=== PATIENT | female | born 1980 | race Caucasian/White ===

== ENCOUNTER 2019-05-17 01:16 | Emergency (ER) | payer OTHER ==
[2019-05-17 01:47] LABS: Urine Bacteria >50 /HPF (<20); Urine Culture Reflex Order REFLEXED; Urine RBC TNTC /HPF (NONE SEEN)
[2019-05-17 01:50] LABS: Urine Blood 3+ (NEG); Urine Glucose NEGATIVE (NEG); Urine Protein 3+ (NEG)
[2019-05-17] MEDS ORDERED: KETOROLAC 30 MG/ML INJ ONE (02:32)
[2019-05-17] MEDS ORDERED: CEFTRIAXONE 1000 MG/VIAL ONE (02:32)
--- NOTE | 2019-05-17 02:45 | ER ---
Nurse's Notes [facility] Name: Linda Curry Age: 38 yrs Sex: Female : 1980 Arrival Date: 05/17/2019 Time: 01:19 Bed 14 Private MD: Diagnosis: Acute tubulo-interstitial nephritis Presentation: 05/17 01:30 Presenting complaint: Patient states: Patient reports abdominal tightness that wraps ea around to lower back and nausea that started yesterday. Transition of care: patient was not received from another setting of care. Onset of symptoms. 01:30 Method Of Arrival: Ambulatory ea 01:30 Acuity: LESLI 3 ea 01:40 Risk Assessment: Do you want to hurt yourself or someone else? Patient reports no ea desire to harm self or others. Initial Sepsis Screen: Does the patient meet any 2 criteria? No. Patient's initial sepsis screen is negative. Does the patient have a suspected source of infection? No. Patient's initial sepsis screen is negative. Care prior to arrival: None. Triage Assessment: 01:41 General: Appears uncomfortable, Behavior is calm, cooperative, appropriate for age. ea Pain: Complains of pain in right lower quadrant and left lower quadrant Pain radiates to posterior aspect of right lateral abdomen, anterior aspect of right lateral abdomen, posterior aspect of left lateral abdomen and anterior aspect of left lateral abdomen. Neuro: Level of Consciousness is awake, alert, obeys commands, Oriented to person, place, time, situation. Cardiovascular: Patient's skin is warm and dry. Respiratory: Airway is patent Respiratory effort is even, unlabored, Respiratory pattern is regular, symmetrical. GI: Abdomen is distended, Bowel sounds present X 4 quads. 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 - Social history:: Smoking status: Patient/guardian denies using tobacco. - Ebola Screening: : No symptoms or risks identified at this time. Screenin:32 Abuse screen: Denies threats or abuse. Nutritional screening: No deficits noted. ea Tuberculosis screening: No symptoms or risk factors identified. Fall Risk None identified. Assessment: 01:42 Reassessment: See triage assessment. ea 02:00 Reassessment: Patient and/or family updated on plan of care and expected duration. Pain ea level reassessed. Patient is alert, oriented x 3, equal unlabored respirations, skin warm/dry/pink. 03:20 Reassessment: Patient and/or family updated on plan of care and expected duration. Pain ea level reassessed. Patient is alert, oriented x 3, equal unlabored respirations, skin warm/dry/pink. Discharge instruction given to patient, verbalized the understanding of instruction. Pt left ambulatory with family, pt tolerating well. Vital Signs: 01:34 BP 114 / 69; Pulse 71; Resp 18; Temp 98.5; Pulse Ox 98% on R/A; Weight 56.7 kg; Height ea 5 ft. 7 in. (170.18 cm); Pain 10/10; 02:30 BP 110 / 60; Pulse 80; Resp 18; Pulse Ox 98% ; ea 03:15 BP 120 / 70; Pulse 70; Resp 18; Temp 98.2; Pulse Ox 99% ; ea 01:34 Body Mass Index 19.58 (56.70 kg, 170.18 cm) ea ED Course: 01:19 Patient arrived in ED. do 01:26 Brett Khan MD is Attending Physician. gs 01:30 Angle Ferrara RN is Primary Nurse. ea 01:32 Triage completed. ea 01:33 Patient has correct armband on for positive identification. Bed in low position. Call ea light in reach. Side rails up X 1. 01:33 Patient placed in an exam room, on a stretcher, on pulse oximetry. ea 03:20 No provider procedures requiring assistance completed. Patient did not have IV access ea during this emergency room visit. Administered Medications: 02:26 Drug: Rocephin (cefTRIAXone) 1 grams Route: IM; Site: right gluteus; ea 03:00 Follow up: Response: No adverse reaction ea 02:27 Drug: TORadol 30 mg Route: IM; Site: right deltoid; ea 03:00 Follow up: Response: No adverse reaction; Pain is decreased ea Outcome: 02:45 Discharge ordered by . gs 03:20 Discharged to home ambulatory, with family. ea 03:20 Condition: stable 03:20 Discharge instructions given to patient, Instructed on discharge instructions, follow up and referral plans. medication usage, Demonstrated understanding of instructions, follow-up care, medications, Prescriptions given X 1. 03:26 Patient left the ED. ea Signatures: Chapis Burks Elena, RN RN ea Starr, Gregory, MD MD Corrections: (The following items were deleted from the chart) 01:43 01:41 Pain: Complains of pain in right lower quadrant and left lower quadrant Pain ea radiates to posterior aspect of right lateral abdomen, anterior aspect of right lateral abdomen, posterior aspect of left lateral abdomen and anterior aspect of left lateral abdomen ea 01:43 01:41 GI: Abdomen is distended, ea ea
--- NOTE | 2019-05-17 02:45 | EDPHYS ---
Physician Documentation [facility] Name: Linda Curry Age: 38 yrs Sex: Female : 1980 Arrival Date: 05/17/2019 Time: 01:19 Bed 14 Private MD: ED Physician Brett Khan HPI: 05/17 04:52 This 38 yrs old Female presents to ER via Ambulatory with complaints of gs Abdominal Pain, Back Pain. 04:52 The patient presents with pain that is acute. The symptoms are located in the left low gs back and right low back. Onset: The symptoms/episode began/occurred yesterday. The pain does not radiate. Associated signs and symptoms: Pertinent positives: dysuria, Pertinent negatives: fever, vomiting. Modifying factors: The patient symptoms are alleviated by nothing, the patient symptoms are aggravated by movement. Severity of symptoms: At their worst the symptoms were moderate, in the emergency department the symptoms have improved, mildly. The patient has experienced similar episodes in the past, a few times. 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 - Social history:: Smoking status: Patient/guardian denies using tobacco. - Ebola Screening: : No symptoms or risks identified at this time. ROS: 04:52 All other systems are negative. gs Exam: 04:52 Head/Face: Normocephalic, atraumatic. Eyes: Pupils equal round and reactive to light, gs extra-ocular motions intact. Lids and lashes normal. Conjunctiva and sclera are non-icteric and not injected. Cornea within normal limits. Periorbital areas with no swelling, redness, or edema. ENT: Nares patent. No nasal discharge, no septal abnormalities noted. Tympanic membranes are normal and external auditory canals are clear. Oropharynx with no redness, swelling, or masses, exudates, or evidence of obstruction, uvula midline. Mucous membranes moist. Neck: Trachea midline, no thyromegaly or masses palpated, and no cervical lymphadenopathy. Supple, full range of motion without nuchal rigidity, or vertebral point tenderness. No Meningismus. Chest/axilla: Normal chest wall appearance and motion. Nontender with no deformity. No lesions are appreciated. Cardiovascular: Regular rate and rhythm with a normal S1 and S2. No gallops, murmurs, or rubs. Normal PMI, no JVD. No pulse deficits. Respiratory: Lungs have equal breath sounds bilaterally, clear to auscultation and percussion. No rales, rhonchi or wheezes noted. No increased work of breathing, no retractions or nasal flaring. Abdomen/GI: Soft, non-tender, with normal bowel sounds. No distension or tympany. No guarding or rebound. No evidence of tenderness throughout. Skin: Warm, dry with normal turgor. Normal color with no rashes, no lesions, and no evidence of cellulitis. MS/ Extremity: Pulses equal, no cyanosis. Neurovascular intact. Full, normal range of motion. Neuro: Awake and alert, GCS 15, oriented to person, place, time, and situation. Cranial nerves II-XII grossly intact. Motor strength 5/5 in all extremities. Sensory grossly intact. Cerebellar exam normal. Normal gait. 04:52 Constitutional: The patient appears alert, awake. 04:52 Back: CVA tenderness, that is moderate, is noted on the right, is noted on the left. Vital Signs: 01:34 BP 114 / 69; Pulse 71; Resp 18; Temp 98.5; Pulse Ox 98% on R/A; Weight 56.7 kg; Height ea 5 ft. 7 in. (170.18 cm); Pain 10/10; 02:30 BP 110 / 60; Pulse 80; Resp 18; Pulse Ox 98% ; ea 03:15 BP 120 / 70; Pulse 70; Resp 18; Temp 98.2; Pulse Ox 99% ; ea 01:34 Body Mass Index 19.58 (56.70 kg, 170.18 cm) ea MDM: 02:03 Patient medically screened. gs 04:52 Differential diagnosis: Pyelonephritis sprain. Data reviewed: vital signs, nurses notes. Counseling: I had a detailed discussion with the patient and/or guardian regarding: the historical points, exam findings, and any diagnostic results supporting the discharge/admit diagnosis, lab results, the need for outpatient follow up. Response to treatment: the patient's symptoms have markedly improved after treatment, and as a result, I will discharge patient. 05/17 01:32 Order name: Urine Microscopic Only; Complete Time: 02:12 05/17 01:38 Order name: Urine Dipstick--Ancillary (enter results); Complete Time: 02:12 [facility] 05/17 01:38 Order name: Urine --Ancillary (enter results); Complete Time: 02:12 [facility] 05/17 01:49 Order name: Urine Culture [facility] 05/17 01:32 Order name: Urine Test (obtain specimen); Complete Time: 01:51 05/17 01:32 Order name: Urine Dipstick-Ancillary (obtain specimen); Complete Time: 01:51 Administered Medications: 02:26 Drug: Rocephin (cefTRIAXone) 1 grams Route: IM; Site: right gluteus; ea 03:00 Follow up: Response: No adverse reaction ea 02:27 Drug: TORadol 30 mg Route: IM; Site: right deltoid; ea 03:00 Follow up: Response: No adverse reaction; Pain is decreased ea Disposition: 05/17/19 02:45 Discharged to Home. Impression: Acute tubulo-interstitial nephritis. - Condition is Stable. - Discharge Instructions: Pyelonephritis, Adult. - Prescriptions for Keflex 500 mg Oral Capsule - take 2 capsule by ORAL route every 12 hours for 10 days; 40 capsule. - Medication Reconciliation Form, Thank You Letter, Antibiotic Education, Prescription Opioid Use form. - Follow up: Private Physician; When: 2 - 3 days; Reason: Re-evaluation by your physician. Signatures: Dispatcher [employer] Angle Joy RN RN ea Starr, Gregory, MD MD Corrections: (The following items were deleted from the chart) 03:26 02:45 05/17/2019 02:45 Discharged to Home. Impression: Acute tubulo-interstitial ea nephritis. Condition is Stable. Forms are Medication Reconciliation Form, Thank You Letter, Antibiotic Education, Prescription Opioid Use. Follow up: Private Physician; When: 2 - 3 days; Reason: Re-evaluation by your physician. gs
== END 2019-05-17 03:26 | disposition home or self-care (01) ==
LOC: ER 01:16
DX: N10 Acute pyelonephritis (principal); F41.9 Anxiety disorder, unspecified
CPT/HCPCS: 81003; 81015; 81025; 87077; 87086; 87088; 87186; 96372; 99283

== ENCOUNTER 2019-08-01 07:39 | Emergency (ER) | payer OTHER ==
--- OUTSIDE RECORDS SUMMARY | 2019-08-01 07:40 | XMS REPORT ---
:1980 [facility] Address [address] [place] [address] Care Team Providers Name Role Phone Unavailable Unavailable Unavailable Problems This patient has no known problems. Allergies, Adverse Reactions, Alerts This patient has no known allergies or adverse reactions. Medications This patient has no known medications. Encounters Start End Encounter Admission Attending Care Care Encounter Date/Time Date/Time Type Type Clinicians Facility Department ID 2019-07-11 2019-07-11 Emergency E [facility] [id number] 18:58:00 18:58:00
[2019-08-01] MEDS ORDERED: NA CHLORIDE 0.9% 1,000 ML ONE (08:31)
[2019-08-01] MEDS ORDERED: ACETAMINOPHEN 325 MG TABLET ONE (08:58)
[2019-08-01 09:14] LABS: Absolute Lymphocytes (CBC) 0.8 K/uL (0.7-4.9); Basophils % 0.2 % (0-1.3); Hematocrit 34.1 % (36.0-45.0); Lymphocytes % 21.8 % (15.3-44.8); MPV 9.2 fL (7.6-11.3); RBC Red Blood Cell Count 3.46 M/uL (3.86-4.86)
[2019-08-01 09:19] LABS: ALT/SGPT 165 U/L (12-78); AST/SGOT 250 U/L (15-37); Albumin 3.8 g/dL (3.4-5.0); Alkaline Phosphatase 161 U/L (45-117); BUN Blood Urea Nitrogen 11 mg/dL (7-18); Bicarbonate 32 mmol/L (21-32); Bilirubin Direct 0.6 mg/dL (0-0.2); Bilirubin Total 1.3 mg/dL (0.2-1.0); Glucose Level 101 mg/dL (74-106); Lipase 241 U/L (73-393); Potassium 3.2 mmol/L (3.5-5.1); Sodium Level 139 mmol/L (136-145)
[2019-08-01 09:34] LABS: Urine Bacteria 20-50 /HPF (<20); Urine Culture Reflex Order REFLEXED; Urine RBC <5 /HPF (NONE SEEN)
[2019-08-01 10:02] LABS: Blood Morphology Comment NOT SEEN (NOT SEEN); Platelet Estimate DECR
--- NOTE | 2019-08-01 10:25 | RAD REPORT ---
EXAM DESCRIPTION: CT - Abdomen Pelvis W Contrast - 08/01/2019 10:08 am CLINICAL HISTORY: Abdominal pain with nausea. COMPARISON: none. TECHNIQUE: Computed axial tomography of the abdomen pelvis was obtained. 100 cc Isovue-300 was admin istered intravenously. Oral contrast was not requested which limits evaluation of bowel. All CT scans are performed using dose optimization technique as appropriate and may include automated exposure control or mA/KV adjustment according to patient size. FINDINGS: Hepatomegaly. Fatty infiltration. Liver has a mildly nodular contour. Spleen, pancreas, adrenal and kidneys appear unremarkable. There is no evidence of diverticulitis. Normal appendix. 5 centimeter complex cystic left adnexal mass without significant free-fluid IMPRESSION: Fatty infiltration with hepatomegaly. Mildly nodular hepatic contour may indicate chroni c disease 5 centimeter complex cystic left adnexal mass may represent a hemorrhagic cyst, endometrioma or ovari an cyst adenoma. Follow-up ultrasound in 6 weeks is recommended to assess stability/resolution.
--- NOTE | 2019-08-01 10:32 | RAD REPORT ---
EXAM DESCRIPTION: RAD - Foot Left 3 View - 08/01/2019 10:18 am CLINICAL HISTORY: Left Foot pain FINDINGS: No fracture or dislocation is seen. Large calcaneal spurs are present
[2019-08-01 11:10] LABS: Urine Blood NEGATIVE (NEG); Urine Glucose NEGATIVE (NEG); Urine Protein NEGATIVE (NEG); Urine Specific Gravity 1.005 (1.005-1.030); Urine pH 6.5 (5.0-7.0)
--- NOTE | 2019-08-01 11:11 | ER ---
Nurse's Notes [facility] Name: Linda Curry Age: 38 yrs Sex: Female : 1980 Arrival Date: 08/01/2019 Time: 07:41 Bed 18 Private MD: Diagnosis: Urinary tract infection, site not specified;Unspecified ovarian cysts Presentation: 08/01 07:50 Presenting complaint: Low back pain that radiates to lower abdomen and groin x 4 days, hb blood in urine 2 days ago. Transition of care: patient was not received from another setting of care. Onset of symptoms was July 28, 2019. Risk Assessment: Do you want to hurt yourself or someone else? Patient reports no desire to harm self or others. Initial Sepsis Screen: Does the patient meet any 2 criteria? No. Patient's initial sepsis screen is negative. Does the patient have a suspected source of infection? No. Patient's initial sepsis screen is negative. Care prior to arrival: None. 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 Screenin:05 Abuse screen: Denies threats or abuse. Nutritional screening: No deficits noted. em Tuberculosis screening: No symptoms or risk factors identified. Fall Risk None identified. Assessment: 08:05 General: Appears in no apparent distress. comfortable, Behavior is calm, cooperative, em Denies fever. Pain: Complains of pain in left low back and right low back Pain currently is 5 out of 10 on a pain scale. Pain began 2-3 days ago. Neuro: Level of Consciousness is awake, alert, obeys commands, Oriented to person, place, time, situation, Appropriate for age. Cardiovascular: Capillary refill < 3 seconds in bilateral fingers toes Patient's skin is warm and dry. Respiratory: Airway is patent Respiratory effort is even, unlabored, Respiratory pattern is regular, symmetrical. GI: Abdomen is flat, Bowel sounds present X 4 quads. Abd is soft and non tender X 4 quads. Reports nausea, Patient currently denies diarrhea, vomiting. : Denies burning with urination, urinary frequency. Derm: Skin is intact, is healthy with good turgor, Skin is pink, warm \T\ dry. Musculoskeletal: Capillary refill < 3 seconds, Range of motion: intact in all extremities. 08:05 Pain: Complains of pain in left foot Pain. Derm: Bruising that is on dorsum of left em foot that is purple. Musculoskeletal: 08:25 Reassessment: I agree with previous assessment. hb 09:00 Reassessment: request something for pain, provider notified, new medication orders em received. 10:56 Reassessment: Patient appears in no apparent distress at this time. Patient and/or em family updated on plan of care and expected duration. Pain level reassessed. Patient is alert, oriented x 3, equal unlabored respirations, skin warm/dry/pink. 11:40 Reassessment: Patient appears in no apparent distress at this time. Patient and/or em family updated on plan of care and expected duration. Pain level reassessed. Patient is alert, oriented x 3, equal unlabored respirations, skin warm/dry/pink. Vital Signs: 07:50 BP 120 / 77; Pulse 86; Resp 16; Temp 97.7; Pulse Ox 98% on R/A; Weight 58.97 kg; Height hb 5 ft. 1 in. (154.94 cm); Pain 5/10; 08:52 BP 110 / 90; Pulse 96; Resp 16; Pulse Ox 98% on R/A; Pain 5/10; em 11:00 BP 109 / 75; Pulse 71; Resp 19; Pulse Ox 99% on R/A; Pain 5/10; em 07:50 Body Mass Index 24.56 (58.97 kg, 154.94 cm) ED Course: 07:41 Patient arrived in ED. rg4 07:49 Antione Davis LVN is Primary Nurse. em 07:50 Arm band placed on. hb 07:51 Triage completed. hb 08:05 Kleber Lakhani, GRADY is PHCP. pm1 08:05 Fidencio Sharma MD is Attending Physician. pm1 08:05 Patient has correct armband on for positive identification. Bed in low position. Call em light in reach. Pulse ox on. NIBP on. 08:35 Initial lab(s) drawn, by me, sent to lab. Urine collected: clean catch specimen, clear. em Inserted saline lock: 20 gauge in right antecubital area, using aseptic technique. Blood collected. 09:30 Notified Nurse Practitioner and/or Physician Director Of Events of a critical lab result(s), hb PLATELETS 63K. 10:09 CT Abd/Pelvis - IV Contrast Only In Process Unspecified. EDMS 10:19 Foot Left 3 View XRAY In Process Unspecified. EDMS 11:40 No provider procedures requiring assistance completed. IV discontinued, intact, em bleeding controlled, No redness/swelling at site. Pressure dressing applied. Administered Medications: 08:40 Drug: NS 0.9% 1000 ml Route: IV; Rate: 1000 ml; Site: right antecubital; em 09:48 Follow up: IV Status: Completed infusion; IV Intake: 1000ml em 09:03 Drug: Tylenol 650 mg Route: PO; em 09:48 Follow up: Response: No adverse reaction em 11:34 Drug: Ketorolac 15 mg Route: IVP; Site: right antecubital; rv 11:41 Follow up: Response: Medication administered at discharge. rv 11:42 Follow up: Response: Medication administered at discharge. em Intake: 09:48 IV: 1000ml; Total: 1000ml. em Outcome: 11:10 Discharge ordered by . pm1 11:40 Discharged to home ambulatory, with friend. em 11:40 Condition: good 11:40 Discharge instructions given to patient, friend, Instructed on discharge instructions, follow up and referral plans. medication usage, Demonstrated understanding of instructions, follow-up care, medications, Prescriptions given X 1. 11:42 Patient left the ED. em Signatures: Dispatcher [employer] EDMS Antione Davis, GEOTECHNICAL FIELD TECHNICIAN GEOTECHNICAL FIELD TECHNICIAN em Kleber Lakhani, SHOT CORE DRILL OPERATOR HELPER SHOT CORE DRILL OPERATOR HELPER pm1 Mallory Coronado RN RN Rachell Morel rg4 Luciano, Jovanny, RN RN rv
--- NOTE | 2019-08-01 11:12 | EDPHYS ---
Physician Documentation [facility] [place] Name: Linda Curry Age: 38 yrs Sex: Female : 1980 Arrival Date: 08/01/2019 Time: 07:41 Bed 18 Private MD: ED Physician Fidencio Sharma HPI: 08/01 08:53 This 38 yrs old Female presents to ER via Ambulatory with complaints of Back pm1 Pain. 08:53 The patient presents with pain that is acute. The symptoms are located in the low back. pm1 Onset: The symptoms/episode began/occurred 3 day(s) ago. The pain does not radiate. Associated signs and symptoms: Pertinent positives: dysuria, Pertinent negatives: fever, nausea, vomiting. The problem was sustained possible urinary tract infection, dark urine, frequency and small amounts of urine. Modifying factors: The patient symptoms are alleviated by nothing, the patient symptoms are aggravated by nothing. Severity of symptoms: in the emergency department the symptoms are actually worse. The patient has experienced similar episodes in the past, a few times. The patient has not recently seen a physician. Patient is currently at [facility] for alcohol detox/rehab. Patient also complaining of left foot pain and bruising. Patient was clean for 30 days and then had a binge for 5 days. Fell and hurt her foot. Then checked into [facility]. 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 ROS: 09:01 Constitutional: Negative for fever, chills, and weight loss, Eyes: Negative for injury, pm1 pain, redness, and discharge, ENT: Negative for injury, pain, and discharge, Neck: Negative for injury, pain, and swelling, Cardiovascular: Negative for chest pain, palpitations, and edema, Respiratory: Negative for shortness of breath, cough, wheezing, and pleuritic chest pain. 09:01 MS/Extremity: Negative for injury and deformity, Skin: Negative for injury, rash, and discoloration, Neuro: Negative for headache, weakness, numbness, tingling, and seizure. 09:01 Abdomen/GI: Positive for abdominal pain, of the right lower quadrant and left lower quadrant, Negative for nausea, vomiting, and diarrhea. 09:01 Back: Positive for flank pain, bilaterally. 09:01 : Positive for urinary frequency, small amounts, Dark urine. Exam: 09:01 Constitutional: This is a well developed, well nourished patient who is awake, alert, pm1 and in no acute distress. Head/Face: Normocephalic, atraumatic. Neck: Trachea midline, no thyromegaly or masses palpated, and no cervical lymphadenopathy. Supple, full range of motion without nuchal rigidity, or vertebral point tenderness. No Meningismus. Chest/axilla: Normal chest wall appearance and motion. Nontender with no deformity. No lesions are appreciated. Cardiovascular: Regular rate and rhythm with a normal S1 and S2. No gallops, murmurs, or rubs. Normal PMI, no JVD. No pulse deficits. Respiratory: Lungs have equal breath sounds bilaterally, clear to auscultation and percussion. No rales, rhonchi or wheezes noted. No increased work of breathing, no retractions or nasal flaring. Abdomen/GI: Soft, non-tender, with normal bowel sounds. No distension or tympany. No guarding or rebound. No evidence of tenderness throughout. 09:01 Skin: Warm, dry with normal turgor. Normal color with no rashes, no lesions, and no evidence of cellulitis. MS/ Extremity: Pulses equal, no cyanosis. Neurovascular intact. Full, normal range of motion. 09:01 Back: pain, that is mild, of the left low back and right low back, normal spinal alignment noted, vertebral tenderness, is not appreciated. 09:01 Neuro: Orientation: is normal, Motor: is normal, moves all fours, strength is normal, Gait: is steady, at a normal pace, without difficulty. Vital Signs: 07:50 BP 120 / 77; Pulse 86; Resp 16; Temp 97.7; Pulse Ox 98% on R/A; Weight 58.97 kg; Height hb 5 ft. 1 in. (154.94 cm); Pain 5/10; 08:52 BP 110 / 90; Pulse 96; Resp 16; Pulse Ox 98% on R/A; Pain 5/10; em 11:00 BP 109 / 75; Pulse 71; Resp 19; Pulse Ox 99% on R/A; Pain 5/10; em 07:50 Body Mass Index 24.56 (58.97 kg, 154.94 cm) hb MDM: 08:11 Patient medically screened. pm1 09:02 Data reviewed: vital signs. Data interpreted: Pulse oximetry: on room air is 98 %. pm1 Interpretation: normal. 11:08 Counseling: I had a detailed discussion with the patient and/or guardian regarding: the pm1 historical points, exam findings, and any diagnostic results supporting the discharge/admit diagnosis, lab results, radiology results, the need for outpatient follow up, to return to the emergency department if symptoms worsen or persist or if there are any questions or concerns that arise at home. 08/01 08:17 Order name: Basic Metabolic Panel; Complete Time: 09:19 pm1 08/01 08:17 Order name: CBC with Diff; Complete Time: 10:21 pm1 08/01 08:17 Order name: Creatinine for Radiology; Complete Time: 09:19 pm1 08/01 08:17 Order name: Hepatic Function; Complete Time: 09:19 pm08/01 08:17 Order name: Lipase; Complete Time: 09:19 pm08/01 08:17 Order name: Urine Microscopic Only; Complete Time: 09:35 pm08/01 08:17 Order name: CT Abd/Pelvis - IV Contrast Only; Complete Time: 10:48 pm1 08/01 08:17 Order name: Foot Left 3 View XRAY; Complete Time: 10:48 pm1 08/01 08:26 Order name: Urine Dipstick--Ancillary (enter results); Complete Time: 11:14 eb 08/01 08:26 Order name: Test, Serum; Complete Time: 09:19 eb 08/01 09:36 Order name: Urine Culture EDUT 08/01 10:03 Order name: Manual Differential; Complete Time: 10:21 [facility] 08/01 08:17 Order name: IV Saline Lock; Complete Time: 08:42 pm1 08/01 08:17 Order name: Labs collected and sent; Complete Time: 08:42 pm1 08/01 08:17 Order name: Urine Dipstick-Ancillary (obtain specimen); Complete Time: 08:24 pm1 08/01 08:17 Order name: Urine Test (obtain specimen); Complete Time: 08:24 pm1 Administered Medications: 08:40 Drug: NS 0.9% 1000 ml Route: IV; Rate: 1000 ml; Site: right antecubital; em 09:48 Follow up: IV Status: Completed infusion; IV Intake: 1000ml em 09:03 Drug: Tylenol 650 mg Route: PO; em 09:48 Follow up: Response: No adverse reaction em 11:34 Drug: Ketorolac 15 mg Route: IVP; Site: right antecubital; rv 11:41 Follow up: Response: Medication administered at discharge. rv 11:42 Follow up: Response: Medication administered at discharge. em Disposition: 08/01/19 11:10 Discharged to Home. Impression: Urinary tract infection, site not specified, Unspecified ovarian cysts. - Condition is Stable. - Discharge Instructions: Ovarian Cyst, Urinary Tract Infection, Adult. - Prescriptions for Macrobid 100 mg Oral Capsule - take 1 capsule by ORAL route every 12 hours for 10 days; 20 capsule. - Medication Reconciliation Form, Thank You Letter, Antibiotic Education, Prescription Opioid Use form. - Follow up: Emergency Department; When: As needed; Reason: Worsening of condition. Follow up: Private Physician; When: 2 - 3 days; Reason: Recheck today's complaints, Continuance of care, Re-evaluation by your physician. - Problem is new. - Symptoms have improved. Addendum: 08/03/2019 09:51 Co-signature as Attending Physician, Fidencio Sharma MD I agree with the assessment and k dr plan of care. Signatures: Dispatcher [employer] Fidencio Perdomo MD MD [facility] Antione Davis, LIVERY CAR DRIVER LIVERY CAR DRIVER em Kleber Lakhani, PHYSICAL LABORATORY ASSISTANT PHYSICAL LABORATORY ASSISTANT pm1 Mallory Coronado, CLEM RN hb Jovanny Wolf RN RN rv Corrections: (The following items were deleted from the chart) 08/01 11:42 11:10 08/01/2019 11:10 Discharged to Home. Impression: Urinary tract infection, site em not specified; Unspecified ovarian cysts. Condition is Stable. Forms are Medication Reconciliation Form, Thank You Letter, Antibiotic Education, Prescription Opioid Use. Follow up: Emergency Department; When: As needed; Reason: Worsening of condition. Follow up: Private Physician; When: 2 - 3 days; Reason: Recheck today's complaints, Continuance of care, Re-evaluation by your physician. Problem is new. Symptoms have improved. pm1
[2019-08-01] MEDS ORDERED: KETOROLAC 30 MG/ML INJ ONE (11:30)
[2019-08-01 12:27] VITALS: TEMP 97.7
[2019-08-01 12:30] VITALS: BP 109/75; O2SAT 99
== END 2019-08-01 11:42 | disposition home or self-care (01) ==
LOC: ER 07:39
DX: N39.0 Urinary tract infection, site not specified (principal); N83.209 Unspecified ovarian cyst, unspecified side; F41.9 Anxiety disorder, unspecified
CPT/HCPCS: 96361; 87088; 85025; 87086; 80048; 36415; 84703; 80076; 83690; 74177; 73630; 96374; 99284; Q9967; J7030; 81003; 81015